=== PATIENT | female | born 1995 | race Caucasian/White ===

== ENCOUNTER 2020-11-15 13:57 | Outpatient (RCR) | payer OTHER, SELFPAY ==
--- NOTE | ~2020-11-15 | US_ITS ---
EXAMINATION: US OB BPP wo non-stress EXAM DATE: 11/15/2020 15:16 INDICATION: Decelerations and doctor's office. 3rd trimester. TECHNIQUE: Pelvic obstetrical transabdominal sonogram was performed by a technologist. There are mu ltiple grayscale and Doppler images available for interpretation. There are no earlier studies of th is gestation for comparison. FINDINGS: There is a single fetus identified in vertex presentation with a heart rate of 154 beats pe r minute. The placenta is located in the fundal position. There is no sonographic evidence of retrop lacental hemorrhage identified. BIOPHYSICAL PROFILE (performed by the technologist) breathing (30 sec sustained breathing in 30 minutes): 2 out of 2 movement (3 gross body movements in 30 minutes): 2 out of 2 tone (one episode of badjbqc-xjnbwkxhm-hfzapyo limb movement): 2 out of 2 Amniotic fluid pocket (2 cm): 2 out of 2 Total score: 8 out of 8 IMPRESSION: 1. Single fetus with heart rate of 154 bpm. 2. Normal biophysical profile score of 8 out of 8. Reviewed, dictated and finalized at location A. [employer]
[2020-11-15 15:24] VITALS: BP 116/78; PULSE 112
== END 2020-11-28 07:52 | disposition home or self-care (01) ==
LOC: ANHOBOP 13:57
PROVIDERS: Visit Provider Obstetrics & Gynecology
DX: O36.8330 Maternal care for abnormalities of the fetal heart rate or rhythm, third trimester, not applicable or unspecified (principal); Z3A.38 38 weeks gestation of pregnancy
CPT/HCPCS: 59025; 76819

== ENCOUNTER 2020-11-26 22:22 | Inpatient (IN) | payer OTHER, SELFPAY ==
--- NOTE | 2020-11-26 22:22 | LDADM ---
This patient, Matt House, was admitted to Labor/Delivery/Recovery 105 on 11/26/20 at 22:22. Plans for labor, pain management and were discussed with patient. Patient/family oriented to hospital policies and general routines including ID bracelet, bed and alarms, visiting hours, pain management, procedures, bathroom and other care routines, personal items, smoking policy, room service/diet and guest tray routines, infant security routines, and visiting hours. Patient/Family are encouraged to report perceived risks to care and to ask questions if they do not understand what they are told or what they should do. See OBIX for further documentation.
[2020-11-26 22:33] VITALS: BP 134/75; PULSE 104; RESP 20; TEMP 36.9
[2020-11-26 23:20] VITALS: BMI 31.3
[2020-11-26 23:20] LABS: Basophils Percent Auto 0.3 % (0.2-1.2); Eosinophils Percent Auto 0.4 % (0-4.4); Hematocrit 33.5 % (37.0-47.0); Hemoglobin 11.4 g/dL (12.0-15.0); Immature Granulocyte Absolute 0.07 K/mm3 (0.00-0.031); Immature Granulocyte Percent A 0.7 % (0-0.5); Lymphocytes Absolute Auto 1.74 K/mm3 (0.9-3.2); Lymphocytes Percent Auto 16.4 % (18.3-44.2); Mean Corpuscular Hemoglobin 30.6 pg (26-34); Mean Corpuscular Volume 89.8 fl (80-100); Mean Platelet Volume 10.1 fl (7.4-10.4); Monocytes Absolute Auto 0.8 K/mm3 (0.1-0.6); Monocytes Percent Auto 7.7 % (2.6-8.5); Neutrophils Absolute Auto 7.9 K/mm3 (1.3-6.7); Neutrophils Percent Auto 74.5 % (45.5-73.1); Platelet Count Result 230 k/mm3 (150-375); Red Blood Count 3.73 M/mm3 (4.2-5.4); Red Cell Distribution Width 13.2 % (11.5-14.5); White Blood Count 10.6 K/mm3 (4.5-10.0)
[2020-11-26] MEDS: LACTATED RINGERS 1,000 ML 125 ML IV CONT (23:34)
[2020-11-26] MEDS: OXYTOCIN 30 UNITS/NS 500 ML 30 UNITS/500 ML BAG 6 UNITS IV CONT (23:34)
[2020-11-26 23:39] VITALS: BP 135/99; PULSE 118
[2020-11-27] VITALS (121 sets, daily range): BP systolic 72–155; BP diastolic 35–136; PULSE 76–189; RESP 16–18; TEMP 36.4–37.7; O2SAT 97–100
--- NOTE | 2020-11-27 01:49 | WPDANESEPP ---
Anes - Eval Pre Procedure Procedure: labor epidural Date/Time: 11/27/20 01:49 Surgeon: Emigdio Preop Diagnosis: pain during labor Pre Op Diagnosis: Leaking Patient Data Age: 25 Gender: F Height: 1.57 m Weight: 77.7 kg Last Vital Signs Temp 36.8 C 11/27/20 01:30 Pulse 96 11/27/20 01:30 Resp 18 11/27/20 01:30 BP 120/81 11/27/20 01:30 Allergies Allergy/AdvReac Type Severity Reaction Status Date / Time No Known Allergies Allergy Verified 10/31/20 15:49 Home Medications Medication Instructions Recorded Confirmed Type PNV cmb#95-ferrous fumarate-FA 1 tablet PO DAILY 10/31/20 11/26/20 History [] Laboratory Tests 11/26/20 11/26/20 11/26/20 23:08 23:08 23:08 WBC 10.6 K/mm3 H K/mm3 (4.5-10.0) RBC 3.73 M/mm3 L M/mm3 (4.2-5.4) Hgb 11.4 g/dL L g/dL (12.0-15.0) Hct 33.5 % L % (37.0-47.0) MCV 89.8 fl fl (80-100) MCH 30.6 pg pg (26-34) MCHC 34.0 g/dl g/dl (32-36) RDW 13.2 % % (11.5-14.5) Plt Count 230 k/mm3 k/mm3 (150-375) MPV 10.1 fl fl (7.4-10.4) Immature Gran % (Auto) 0.7 % H % (0-0.5) Neut % (Auto) 74.5 % H % (45.5-73.1) Lymph % (Auto) 16.4 % L % (18.3-44.2) [place] % (Auto) 7.7 % % (2.6-8.5) Eos % (Auto) 0.4 % % (0-4.4) Baso % (Auto) 0.3 % % (0.2-1.2) Lymph # (Auto) 1.74 K/mm3 K/mm3 (0.9-3.2) [place] # (Auto) 0.8 K/mm3 H K/mm3 (0.1-0.6) Eos # (Auto) 0.0 K/mm3 K/mm3 (0-0.3) Baso # (Auto) 0.0 K/mm3 K/mm3 (0.0-0.1) Abs Immat Gran (auto) 0.07 K/mm3 H K/mm3 (0.00-0.031) Absolute Neuts (auto) 7.9 K/mm3 H K/mm3 (1.3-6.7) Absolute Nucleated RBC 0.0 K/mm3 K/mm3 (0.0-0.012) Nucleated RBC % 0.0 % % (0.0-0.2) RPR Pending Blood Type A Positive Antibody Screen Negative Patient hx anesthesia problems: none Family hx anesthesia problems: none [facility] Family History Family History Mother Gestational diabetes Sibling Pyloric stenosis Social History Social History Smoking status: Never smoker Substance use: never Gender identity (if verbalized by the patient): Female Spiritual care concerns: No Exam Day of Procedure 11/27/20 01:49
[2020-11-27] MEDS: LACTATED RINGERS 1,000 ML 125 ML IV CONT (02:08)
[2020-11-27] MEDS: ONDANSETRON INJ 4 MG/2 ML VIAL IV PUSH (07:26)
--- NOTE | 2020-11-27 07:49 | PM.IMHP ---
H&P: HPI History of Present Illness Date/Time: 11/27/20 07:49 Chief Complaint: leakage of fluid Narrative: Matt House is a 25 yo @ 40.2wks who presented to L&D w/ SROM @ 2150 on 11/26/20. She reports contractions. Good movement. She was found to be 1.5cm dilated and started on pitocin. She has made good cervical change through out the night. is complicated by: - Rubella non-immune - Elevated glucola; normal 3hr OGTT - Anemia on iron supplementation Review of Systems Constitutional: Constitutional: Denies chills and Denies fever(s) Eyes: Eyes: Denies blurry vision Cardiovascular: Cardiovascular: Denies chest pain and Denies palpitations Respiratory: Respiratory: Denies cough and Reports dyspnea Gastrointestinal: Gastrointestinal: Reports abdominal pain, Denies nausea and Denies vomiting Genitourinary: Genitourinary: Reports vaginal discharge (SROM, light mec 2150 on 11/26/20) Neurologic: Denies dizziness and Denies headache(s) Psychiatric: Psychiatric: Denies anxiety and Denies depression [facility] Family History Family History Mother Gestational diabetes Sibling Pyloric stenosis Social History Social History Smoking status: Never smoker Substance use: never Gender identity (if verbalized by the patient): Female Spiritual care concerns: No Meds Home Medications and Allergies Home Medications Medication Instructions Recorded Confirmed Type PNV cmb#95-ferrous fumarate-FA 1 tablet PO DAILY 10/31/20 11/26/20 History [] Allergies Allergy/AdvReac Type Severity Reaction Status Date / Time No Known Allergies Allergy Verified 10/31/20 15:49 Vital Signs Vital Signs - 24 hr 11/26/20 22:33 11/26/20 23:39 11/27/20 00:05 Temperature 36.9 C 37.0 C Pulse Rate 104 H 118 H Respiratory Rate 20 18 Blood Pressure 134/75 135/99 H Pulse Oximetry 11/27/20 00:45 11/27/20 01:30 11/27/20 01:52 Temperature 36.8 C Pulse Rate 100 96 Respiratory Rate 18 Blood Pressure 123/70 120/81 Pulse Oximetry 100 11/27/20 01:55 11/27/20 01:58 11/27/20 02:00 Temperature Pulse Rate 100 115 H 101 H Respiratory Rate Blood Pressure 116/86 134/88 123/67 Pulse Oximetry 100 11/27/20 02:01 11/27/20 02:04 11/27/20 02:06 Temperature Pulse Rate 97 100 Respiratory Rate Blood Pressure 128/84 130/72 Pulse Oximetry 100 100 11/27/20 02:08 11/27/20 02:10 11/27/20 02:11 Temperature Pulse Rate 102 H 98 Respiratory Rate Blood Pressure 127/76 113/68 Pulse Oximetry 99 11/27/20 02:15 11/27/20 02:16 11/27/20 02:20 Temperature Pulse Rate 91 94 Respiratory Rate Blood Pressure 123/71 118/80 Pulse Oximetry 99 11/27/20 02:21 11/27/20 02:25 11/27/20 02:26 Temperature Pulse Rate 91 Respiratory Rate Blood Pressure 124/76 Pulse Oximetry 99 99 11/27/20 02:30 11/27/20 02:31 11/27/20 02:35 Temperature Pulse Rate 92 92 Respiratory Rate Blood Pressure 125/75 133/78 Pulse Oximetry 99 11/27/20 02:36 11/27/20 02:41 11/27/20 02:46 Temperature Pulse Rate 108 H Respiratory Rate Blood Pressure 109/82 Pulse Oximetry 100 99 100 11/27/20 02:51 11/27/20 02:56 11/27/20 03:00 Temperature 36.9 C Pulse Rate 87 Respiratory Rate 18 Blood Pressure 120/78 Pulse Oximetry 99 100 11/27/20 03:01 11/27/20 03:06 11/27/20 03:11 Temperature Pulse Rate Respiratory Rate Blood Pressure Pulse Oximetry 100 100 100 11/27/20 03:15 11/27/20 03:16 11/27/20 03:21 Temperature Pulse Rate 81 Respiratory Rate Blood Pressure 118/81 Pulse Oximetry 100 100 11/27/20 03:26 11/27/20 03:30 11/27/20 03:31 Temperature Pulse Rate 84 Respiratory Rate Blood Pressure 107/61 Pulse Oximetry 100 100 11/27/20 03:36 11/27/20 03:41 11/27/20 03:
--- NOTE | 2020-11-27 08:03 | WPDHPUPDATE1 ---
History and Physical Update Update Date/Time: 11/27/20 08:03 History and Physical has been reviewed, including an updated exam of the patient. There are NO changes in the patient's condition. Risks, benefits, and alternatives have been discussed and questions answered. Patient agrees to proceed with procedure.
--- NOTE | 2020-11-27 11:59 | P.PCNOB_ITS ---
OB - Delivery Note Procedure Delivery date: 11/27/20 events: Meconium Stained Fluid Intrapartal events: Intolerance Delivery augmentation: pitocin Delivery monitor: external FHT and external uterine Route of delivery: vacuum extraction Indication for instrumentation: nonreassuring FHR tracing (recurrent severe variables ) Laceration Description: Perineal - 2nd Degree and Vaginal - 2nd Degree Delivery repair: vicryl Quantitative Blood Loss (ml): 200 Anesthesia type: Epidural Disposition: floor Jeannette Baby Date of : 11/27/20 Time of : 11:33 Weeks of gestation at delivery: 40 gender: Female Weight (pounds): 7 Weight (ounces): 11 presentation: vertex position: Right Occiput Anterior Placenta delivery description: Manual Removal (cord avulsed) cord vessel description: 3 Vessels, Nuchal Cord, Tight and Around Body x1 score one minute: 7 score five minutes: 9 Narrative: The patient rapidly progressed to complete dilation. She began pushing for approximately 1 hour where recurrence severe variable decelerations were noted. She was at +2 station and counseled for vacuum assisted vaginal delivery. Thin meconium was also noted therefore the pediatric team was already present. With maternal pushing the vacuum was applied and a total of 5 pulls, 4 pop offs were noted. The initial pulls help to position the head in ARIK (previously asynclitic), the last two pulls helped to deliver the head over intact perineum. A nuchal cord was palpated but delivered through. The shoulders and body delivered without complications and a body cord was also noted. The infant was placed on mom's abdomen and the cord was clamped and cut. The pediatric team evaluated the baby and suctioned out her airway. With Pitocin infusing and gentle downward traction on the umbilical cord, the placenta was noted to be be detaching, however the cord was avulsed. The placenta was then removed manually and noted to be intact. Bimanual massage was performed and good uterine tone with minimal bleeding was noted. The cervix, vagina, perineum were examined and a left sulcal laceration was noted to join with a second-degree perineal laceration. They were repaired in the normal fashion using 2 0 Vicryl and good hemostasis was noted. Sponge, lap, instrument, needle counts were correct at the end the procedure. Mom and baby were left bonding in the birthing suite in a stable condition.
[2020-11-27] MEDS: OXYTOCIN 30 UNITS/NS 500 ML 30 UNITS/500 ML BAG 125 UNITS IV CONT (12:02)
[2020-11-27] MEDS: ceFAZolin 2 GM/D5W 50 ML 2 GM/50 ML BAG IVPB (12:42)
--- NOTE | 2020-11-27 15:26 | PC.NURSE ---
1429-Patient transferred to post room #282 via wheelchair. Support person present. Oriented to unit, room, information board, rooming in, admission packet and security measures. Patient verbalizes understanding.
[2020-11-27] MEDS: HYDROcodone/acetaminophen (*CRX) 5-325 MG TABLET 1 TAB PO (18:29)
[2020-11-27] MEDS: IBUPROFEN 600 MG TABLET PO (22:56)
[2020-11-28] MEDS: TETANUS,DIPHTHERIA,AC PERTUSSIS ADULT (0.5 ML) BOOSTRIX IM (03:40)
[2020-11-28 04:26] LABS: Hematocrit 26.4 % (37.0-47.0); Hemoglobin 8.7 g/dL (12.0-15.0)
--- NOTE | 2020-11-28 07:21 | P.PNOB_ITS ---
OB - PN: Subj Subjective Date/time seen: 11/28/20 07:21 S/p Vacuum assisted vaginal delivery 11/27. Was unable to void so hernández catheter was placed last night, draining well. Otherwise no issues/complaints this mo rning. Pain and cramping is tolerable and controlled with pain medication. Tolerating diet, ambulating. Denies chest pain, SOB. OB - PN: Obj Data Labs CBC & Chem 7: 11/28/20 03:49 Labs: Laboratory Results - last 24 hr 11/28/20 03:49 Hgb 8.7 L Hct 26.4 L OB - PN A/P Assessment and Plan (1) Vacuum-assisted vaginal delivery: Code(s): Z37.9 - Outcome of delivery, unspecified Status: Acute Assessment and Plan: Routine care Pain management Pain control Possible D/C later this afternoon if able to void freely (2) Urinary retention: Code(s): R33.9 - Retention of urine, unspecified Status: Acute Assessment and Plan: Remove hernández this morning, await voiding trial Time Spent With Patient Time: Total time spent is greater than 50% in coordination of care (as documented) at patient's floor/unit and/or counseling patient: Exam Const: General: cooperative, healthy appearing, comfortable, no acute distress, well developed, alert, awake and Physically active HENMT: Head: normocephalic and atraumatic Resp: Effort & Inspection: normal respiratory effort, able to speak in complete sentences, normal respiratory pattern, no audible wheezes, no cough and respiratory effort not decreased Cardio: Rate: regular rate GI: Inspection: normal to inspection GI Palp: No abdominal tenderness, Yes Soft to palpation, No Tenderness to palpation present (GI) and No Guarding due to palpation present (GI) Urinary Catheter: Urinary Catheter: patent and draining and urine clear Neuro: General: oriented to person, oriented to place and oriented to time Psych: Appearance: grossly normal Mental Status: mental status grossly normal Speech and movement: Normal speech and movement present Affect: normal affect Attitude: cooperative Thought process: Normal thought process present Thought content: Yes Normal thought content present Insight: Good insight present (Psych) Judgement: Good judgement present (Psych)
[2020-11-28 07:25] VITALS: BP 105/57; PULSE 96; RESP 16; TEMP 36.9; O2SAT 100
[2020-11-28] MEDS: DOCUSATE SODIUM 100 MG CAPSULE PO (07:29)
[2020-11-28] MEDS: MULTIVIT/MIN/PREN/FOL AC/IRON TABLET 1 TAB PO (07:29)
[2020-11-28] MEDS: POLYSACCHARIDE IRON COMPLEX 150 MG CAPSULE PO (07:29)
[2020-11-28] MEDS: IBUPROFEN 600 MG TABLET PO ×2 (07:30→13:36)
[2020-11-28] MEDS: MEASLES,MUMPS,RUBELLA VACCINE 0.5 ML VIAL SUB-Q (11:15)
[2020-11-28] MEDS: ACETAMINOPHEN 325 MG TABLET 650 MG PO (12:36)
[2020-11-28 13:02] LABS: Rapid Plasma Reagin Non-Reactive (NonReactive)
--- NOTE | 2020-11-28 13:08 | WPDANLDPN2 ---
Anes-Prog Note L&D Date/Time: 11/28/20 13:08 Comfortable throughout: labor and delivery Neuraxial method: epidural Epidural/Spinal procedure site: clean & non-tender Neuro status: Neuro function grossly intact. Cardiovascular status: normal Respiratory status: normal Airway patency: baseline Mental status: baseline Post-Op hydration status: normal Vital Signs: Last Vital Signs Temp 36.9 C 11/28/20 07:25 Pulse 96 11/28/20 07:25 Resp 16 11/28/20 07:25 BP 105/57 L 11/28/20 07:25 Pulse Ox 100 11/28/20 07:25 Pain score (VAS): 0 I/O: Intake & Output 11/27/20 11/28/20 11/28/20 23:59 07:59 15:59 Intake Total 1500 Output Total 950 6811 977 Balance -220 -800 -968 Post-procedural complaints: none Patient feedback: Patient satisfied with anesthetic care.
--- NOTE | 2020-11-28 13:51 | PC.NURSE ---
Patient was given the opportunity to view the discharge video Mother & Baby Care, The First Two Weeks and to ask questions. Patient declined viewing the video and has been given the mother/baby guide for home reference. Pt. states she will watch at home.
[2020-11-29 10:04] VITALS: BP 121/75; PULSE 90; RESP 16; TEMP 36.7; O2SAT 100
--- NOTE | 2020-12-06 12:37 | PM.OBDSVD ---
DS: Admitting Diagnosis Admitting Diagnosis Admitting Diagnosis: leakage of fluid DS: Discharge Diagnosis Discharge Diagnosis (1) Vacuum-assisted vaginal delivery: Code(s): Z37.9 - Outcome of delivery, unspecified Status: Acute (2) Urinary retention: Code(s): R33.9 - Retention of urine, unspecified Status: Acute OB - DS: Summary OB Procedures : None OB Procedures Intrapartum: Vacuum extraction OB Procedures: : None Peripartum Data Delivery Method: Assisted Delivery Laceration Description: Perineal - 2nd Degree Episiotomy description: None complications: none 1: Gender: Female Disposition of : home Status at Discharge Functional status at discharge: independent ambulation Overall status at discharge: patient is back to baseline Time Spent with Patient Time attestation: Total time spent providing and/or coordinating discharge services: Exam Const: General: cooperative, comfortable and no acute distress Resp: Effort & Inspection: normal respiratory effort and able to speak in complete sentences Cardio: Rate: regular rate GI: Inspection: non-distended GI Palp: Yes Soft to palpation and No Tenderness to palpation present (GI) : Other: fundus firm below umbilicus Skin: General skin exam: normal color Neuro: General: patient oriented x3 Extrem: General: normal to inspection Psych: Appearance: grossly normal Affect: normal affect Attitude: cooperative DS: Data Data Completed and Pending Completed studies during hospitalization: Pending at discharge 11/27/20 11:39 Surgical [PTH] Routine Discharge Plan Discharge Attending physician on discharge: Chela Beal Consulting providers: Oscar Kelley ; Chela Beal Discharging Clinician: Robert Wilson Patient Disposition: Home, Self-Care Activity: may shower, no straining, as tolerated and pelvic rest Diet: regular Discharge Instructions: Education: Mom and Baby Guide Given to: Mother Follow-Up: Call your delivering provider's office for an appointment to be seen in: Call for appointment Mom and baby should come to the [facility] for the follow-up appointment. Appointment Date/Time: November 29, 2020 at 10:00 am What to expect at your follow-up visit: Physical Assessment Call [phone] if you are unable to keep your appointment time. BREAST CARE: * Wear a snug supportive bra. * For engorgement discomfort: Breast Feeding: * Apply warm moist washcloths * Express milk as needed to relieve engorgement * Wear loose clothing * For sore nipples: * Identify correct latch-on * Apply warm moist washcloths before and after nursing * Air dry nipples after nursing * May apply Lansinoh cream to nipples EPISIOTOMY/PERINEAL CARE: * Until bleeding stops, use your jeferson bottle after urinating * Change your pad frequently throughout the day * You may take sitz baths several times a day (fill your bathtub with warm water and soak for 20 minutes.) Do NOT bathe in the water * No tub baths until seen by your physician - You may shower ACTIVITY: * Rest as much as possible. * Do not exercise or lift anything heavier than your baby (such as laundry or other children.) * Avoid stairs or driving as much as possible. * Do not put anything into the vagina. No douching, tampons, or sexual activity until seen by physician. NOTIFY PHYSICIAN IF YOU HAVE ANY QUESTIONS OR IF ANY OF THE FOLLOWING SYMPTOMS OCCUR: * If your episiotomy or incision becomes red, swollen, or more painful than what you have experienced in the hospital. * If your vaginal bleeding becomes foul smelling. * If your vaginal bleeding becomes more heavy than a period or if your bleeding changes from pink to bright red. However, you may pass an occasional walnut-sized clot once or t
== END 2020-11-28 15:15 | disposition home or self-care (01) | DRG 807 ==
LOC: ANHLDR 11-27 04:42 → ANHOB2 11-28 12:48 → ANHLDR 11-29 09:16 → ANHOB2 11-29 09:16
PROVIDERS: Obstetrics & Gynecology; Admitting Provider Obstetrics & Gynecology; Visit Provider Obstetrics & Gynecology
DX: O76 Abnormality in fetal heart rate and rhythm complicating labor and delivery (principal); Z37.0 Single live birth; O99.02 Anemia complicating childbirth; D64.9 Anemia, unspecified; O77.0 Labor and delivery complicated by meconium in amniotic fluid; O70.1 Second degree perineal laceration during delivery; O69.2XX0 Labor and delivery complicated by other cord entanglement, with compression, not applicable or unspecified; Z3A.40 40 weeks gestation of pregnancy; R33.9 Retention of urine, unspecified
CPT/HCPCS: 36415; 84112; 85014; 85018; 85025; 86592; 86850; 86900; 86901; 88307; 90710; 90715; A9270; J0690; J2405; J2590; J7120

== ENCOUNTER 2020-12-25 13:16 | Emergency (ER) | payer OTHER, SELFPAY ==
[2020-12-25 13:29] VITALS: BP 122/69; PULSE 88; RESP 16; TEMP 36.7; O2SAT 98
--- NOTE | 2020-12-25 13:43 | ED.GENADULT ---
HPI - General Adult General Chief complaint: Skin/Abscess/Foreign Body Stated complaint: boil poss infection Source: patient Mode of arrival: ambulatory Limitations: no limitations History of Present Illness HPI narrative: Patient presents for evaluation of painful swollen lesion to the left groin for the last 4 days. She states she had similar symptoms about 3-1/2 weeks ago on the contralateral side. She states she was given a topical antibiotic by her [facility] HEL[facility], Dr. Chela Beal, and symptoms improved at that time. She had vaginal delivery approximately 3 weeks ago. She states she has been doing well since that time. She denies any vaginal bleeding or discharge. She has noted some generalized body aches over the last 4 to 5 days. She is taking Tylenol for symptoms. She is currently breast-feeding. She has not had a follow-up appointment with her [facility] yet. She has been applying warm compresses to the affected area. She is not diabetic. No additional complaints or concerns. Related Data Allergies Allergy/AdvReac Type Severity Reaction Status Date / Time No Known Allergies Allergy Verified 12/25/20 13:36 Review of Systems Review of Systems: Narrative: CONSTITUTIONAL: Denies fever, chills, or sweats. EYES: Denies visual changes, redness, or discharge. ENT: Denies rhinorrhea, congestion, sore throat, or otalgia. CARDIOVASCULAR: Denies chest pain, palpitations, or edema. RESPIRATORY: Denies cough or dyspnea. GASTROINTESTINAL: Denies abdominal pain, nausea, vomiting, or diarrhea. GENITOURINARY: Denies dysuria or hematuria. SKIN: Denies rash or itching. Reports painful swollen lesion to the left side of her groin MUSCULOSKELETAL: Denies back pain, joint pain, or myalgia. NEUROLOGIC: Denies headache, numbness, dizziness, or weakness. PSYCHIATRIC: Denies anxiety or depression. [facility] Past Medical History Medical History (Updated 12/25/20 @ 15:04 by Tho Oconnor, JANNETTE, LEANNE) No significant past medical history Surgical History Surgical History History of tonsillectomy Family History Family History Mother Gestational diabetes Sibling Pyloric stenosis Social History Social History Smoking status: Never smoker Alcohol intake: never Substance use: never Living arrangements: with family Gender identity (if verbalized by the patient): Female Sexual Orientation (if Verbalized by the Patient): Straight or Heterosexual Spiritual care concerns: No Exam Narrative: Exam Narrative: GENERAL: Well-appearing, well-nourished, and in no acute distress. HEAD: Normocephalic, atraumatic. EYES: PERRLA and EOMI. ENT: Nares clear, no rhinorrhea or epistaxis. Mucous membranes moist. Oropharynx without tonsillar hypertrophy exudate or other lesions. Bilateral TMs pearly adhikari nonbulging NECK: Supple. No adenopathy or masses. No carotid bruits or JVD CHEST: Clear to auscultation. No respiratory distress. No wheezes rales or rhonchi HEART: Regular rate and rhythm. No murmur heard. Normal peripheral pulses. ABDOMEN: Soft, nontender, nondistended, normal active bowel sounds. EXTREMITIES: Normal range of motion. No edema. SKIN: Warm, dry, no rash. Approximately 3 cm raised erythematous fluctuant lesion to the left inguinal region with erythema extending approximately 3.5 cm in each direction around the raised lesion. Lesion is actively draining purulent material NEURO: No focal deficits. Alert and oriented x3. PSYCH: Normal mood and affect. Course Course Emergency Course: This is a 25-year-old female that presents with a cutaneous abscess to the left inguinal region. On my initial exam it was already draining. We discussed allowing it to continue to drain spontaneously or performing incision and drainage. Patient elected to proceed with I&D
== END 2020-12-25 15:10 | disposition home or self-care (01) ==
PROVIDERS: Emergency Provider Nurse Practitioner
DX: L02.214 Cutaneous abscess of groin (principal)
CPT/HCPCS: 10061; 87070; 87075; 87076; 87077; 87185; 87205; 99213; G0463